=== PATIENT | female | born 1970 | race African-American/Black ===

== ENCOUNTER 2019-08-26 09:29 | Emergency (ER) | payer OTHER ==
[~2019-08-26] VITALS: Ht 177.8 cm; Wt 109.0 kg
[2019-08-26 09:31] VITALS: BP 141/93
== END 2019-08-26 12:42 | disposition home or self-care (01) ==
LOC: ER 09:29
DX: S01.511A Laceration without foreign body of lip, initial encounter (principal); S01.512A Laceration without foreign body of oral cavity, initial encounter; E11.9 Type 2 diabetes mellitus without complications; Z90.710 Acquired absence of both cervix and uterus; X58.XXXA Exposure to other specified factors, initial encounter; Y93.89 Activity, other specified; Y92.89 Other specified places as the place of occurrence of the external cause; Y99.8 Other external cause status
CPT/HCPCS: 12011; 99282

== ENCOUNTER 2019-08-29 09:27 | Emergency (ER) | payer OTHER ==
[~2019-08-29] VITALS: Ht 177.8 cm; Wt 102.0 kg
[2019-08-29 10:38] VITALS: BP 124/59
== END 2019-08-29 10:40 | disposition home or self-care (01) ==
LOC: ER 09:27
DX: Z48.00 Encounter for change or removal of nonsurgical wound dressing (principal); Z88.0 Allergy status to penicillin
CPT/HCPCS: 99283

== ENCOUNTER 2019-09-05 11:16 | Emergency (ER) | payer OTHER ==
[~2019-09-05] VITALS: Ht 167.6 cm; Wt 87.0 kg
[2019-09-05] MEDS ORDERED: IBUPROFEN 600MG TABLET PO ONE (13:15)
[2019-09-05 13:40] VITALS: BP 140/81
== END 2019-09-05 15:51 | disposition home or self-care (01) ==
LOC: ER 11:16
DX: M25.561 Pain in right knee (principal); E11.9 Type 2 diabetes mellitus without complications; I10 Essential (primary) hypertension; Z90.710 Acquired absence of both cervix and uterus; Z88.0 Allergy status to penicillin; W01.0XXA Fall on same level from slipping, tripping and stumbling without subsequent striking against object, initial encounter; Y93.89 Activity, other specified; Y92.89 Other specified places as the place of occurrence of the external cause; Y99.8 Other external cause status
CPT/HCPCS: 73562; 99283; L1830; Z7610